=== PATIENT | female | born 1985 | race Caucasian/White ===

== ENCOUNTER 2022-07-10 16:48 | Outpatient (CLI) | payer BC, SELFPAY ==
[2022-07-10 15:08] LABS: Albumin* 4.5 g/dL (3.3-5.0); Chloride* 104 mmol/L (96-114)
[2022-07-10 15:09] LABS: Sodium* 138 mmol/L (135-149)
[2022-07-10 15:11] LABS: Bilirubin Total* 0.4 mg/dL (0.1-1.5); Carbon Dioxide* 23 mmol/L (20-32); Cholesterol* 232 mg/dL (90-199); Creatinine* 0.6 mg/dL (0.5-1.5); Estimated Glomerular Filt Rate 118 ml/min
[2022-07-10 15:12] LABS: Alanine Aminotransferase* 13 U/L (4-35); Alkaline Phosphatase* 65 U/L (40-150); Aspartate Amino Transferase* 13 U/L (12-35); Blood Urea Nitrogen* 10 mg/dL (5-24); Calcium* 9.6 mg/dL (8.4-10.6); Glucose* 170 mg/dL (60-115); HDL Cholesterol* 35 mg/dL (>=50); LDL Cholesterol Calculated 154 mg/dL (<100); Potassium* 4.2 mmol/L (3.6-5.1); Total Protein* 6.9 g/dL (6.0-8.3); Triglycerides* 214 mg/dL (40-149)
== END 2022-07-10 16:49 | disposition home or self-care (01) ==
PROVIDERS: PCP Family Medicine; Visit Provider Family Medicine
DX: E11.9 Type 2 diabetes mellitus without complications (principal); E78.00 Pure hypercholesterolemia, unspecified
CPT/HCPCS: 80053; 80061